=== PATIENT | female | born 1995 | race Caucasian/White ===

== ENCOUNTER 2016-06-18 18:26 | Outpatient (CLI) | payer OTHER ==
[~2016-06-18] VITALS: Ht 167.6 cm; Wt 112.2 kg
[2016-06-18] MEDS ORDERED: PREN1TAB17 PO (18:33)
[2016-06-18 18:34] VITALS: Ht 167.6 cm; Wt 112.2 kg
[2016-06-18 18:39] VITALS: BP 124/65
[2016-06-18] MEDS ORDERED: ACETAMINOPHEN 325 MG TAB PO STA (19:38)
--- NOTE | 2016-06-18 19:49 | PN ---
Date/Time of Note Date/Time of Note DATE: 06/18/16 TIME: 19:35 OB Subjective Subjective Subjective 21 yo P0 @ [id number], presents w abdominal itching, in an area where some new stretch welch are forming. She also complains of a headache in a band like distribution around her head. No visual changes, no abdominal pain OB Objective Objective Objective VS: 124/61, 109, 16, 97.9 Abdomen- gravid, n/t SVE-deferred FHT- Cat I [place]- no ctx Abdomen: WNL Accelerations: Accelerations Present Decelerations: No Decelerations Varibility: Moderate Contractions on Admission: None Intensity: Mild OB Assessment/Plan Other Assessment: Patient c/o abdominal itching, likely secondary to stretch welch headache, likely tension headache otherwise, reassuring status Other plan: will give tylenol for headache, nml BP, will send PIH labs advised to use moisturizers on abdomen and benadryl prn to sleep if feeling better after tylenol, d/c home MORGAN FUNES MD Jun 18, 2016 19:46
[2016-06-18 20:46] LABS: ADD UMIC NO; URINE BILIRUBIN (Dip) NEGATIVE (NEGATIVE); URINE BLOOD (Dip) NEGATIVE (NEGATIVE); URINE COLOR LT. YELLOW (YELLOW); URINE GLUCOSE (Dip) NEGATIVE (NEGATIVE); URINE KETONES (Dip) NEGATIVE (NEGATIVE); URINE LEUKOCYTE ESTERASE (Dip) NEGATIVE (NEGATIVE); URINE NITRITE (Dip) NEGATIVE (NEGATIVE); URINE TOTAL PROTEIN (Dip) NEGATIVE (NEGATIVE); URINE UROBILINOGEN (Dip) 0.2 E.U./dL (0.1-1.0)
--- NOTE | 2016-06-18 21:46 | TRIAGE ---
OB Triage Datetime Report Generated by CPN: 06/18/2016 21:46 Datetime: 06/18/2016 20:58 Stage of : OB Triage Headache: Denies Blurred Vision: No Labor Evaluation Frequency: 0 Monitor Mode: External Resting Tone [place]: Relaxed Heart Rate FHR Baseline Rate: 130 Monitor Mode: External US Variability: Moderate 6-25 bpm Accelerations: 15X15 Decelerations: None Category: Category I Pain Presence: None/Denies Pain Type: N/A Datetime: 06/18/2016 20:43 Stage of : OB Triage Datetime: 06/18/2016 19:30 Stage of : OB Triage Labor Evaluation Frequency: 0 Monitor Mode: External Resting Tone [place]: Relaxed Heart Rate FHR Baseline Rate: 140 Monitor Mode: External US Variability: Moderate 6-25 bpm Accelerations: 15X15 Decelerations: None Category: Category I Datetime: 06/18/2016 19:13 Stage of : OB Triage Datetime: 06/18/2016 19:05 EGA: 35.6 Datetime: 06/18/2016 18:42 Stage of : OB Triage Assessment Type: Triage Maternal Assessment Level of Consciousness: Fully Conscious DTR's/Clonus: DTRs 2+; No Clonus Headache: Denies; Frontal Blurred Vision: No Respiratory Effort: Unlabored; Regular Rhythm; Equal Expansion Breath Sounds, Left: Clear and Equal Breath Sounds, Right: Clear and Equal Nausea/Vomiting: Denies RUQ Epigastric Pain: Denies Lower Extremities Edema: Bilateral Lower Extremities Degree: Pitting Upper Extremities Edema: None Degree: None Facial Edema: None Temperature Route: Oral Fall Risk Assessment History of Falling: (0) No Secondary Diagnosis: (0) No Ambulatory Aid: (0) Bedrest/Nurse Assist IV Therapy: (0) No Gait: (0) Normal/Bedrest/Immobile Mental Status: (0) Oriented to Own Ability Fall Score: 0 Fall Risk Score Definition: No Risk: No action required Labor Evaluation Frequency: 0 Monitor Mode: External Resting Tone [place]: Relaxed Heart Rate FHR Baseline Rate: 155 Monitor Mode: External US Variability: Moderate 6-25 bpm Accelerations: 15X15 Decelerations: None Pain Assessment Pain Scale: 0 Pain Presence: None/Denies Pain Type: N/A Datetime: 06/18/2016 18:40 Time of Arrival: 06/18/2016 18:20 Arrived By: Ambulatory Arrived From: Home Chief Complaint: HEADACHE, ITCHING STOMACHE HANDS Movement: Present Contractions: Denies/Absent Rupture of Membranes: Denies Vaginal Bleeding: None Vaginal Discharge: Present Recent Sexual Intercouse: Denies Abdominal Trauma: Not Applicable Patient Complaints: Headache; Other Initial Plan: EFM X2 , CALL OB, tylenol. po hydration, crackers, UA
== END 2016-06-18 21:14 | disposition home or self-care (01) ==
LOC: OBT 18:26 → L-D 18:28 → OBT 21:14
PROVIDERS: ATTEND Obstetrics & Gynecology
DX: O60.03 Preterm labor without delivery, third trimester (principal); Z3A.35 35 weeks gestation of pregnancy
CPT/HCPCS: 81003; Z7610; G0463

== ENCOUNTER 2016-07-01 18:09 | Inpatient (IN) | payer OTHER ==
[~2016-07-01] VITALS: Ht 167.6 cm; Wt 113.4 kg
[~2016-07-01 18:09] MED LIST: PREN1TAB17 PO
[2016-07-01 18:28] VITALS: BP 132/76; PULSE 114; RESP 20
[2016-07-01 18:33] VITALS: Ht 167.6 cm; Wt 113.4 kg
[2016-07-01] MEDS ORDERED: MISOPROSTOL 200 MCG TAB PR PRN (19:00)
[2016-07-01] MEDS ORDERED: LIDOCAINE 1% (MPF) 30 ML INJ INJ PRN (19:00)
[2016-07-01] MEDS ORDERED: METHYLERGONOVINE 0.2 MG INJ IM PRN (19:00)
[2016-07-01] MEDS ORDERED: BUTORPHANOL 2 MG INJ IV PRN (19:00)
[2016-07-01] MEDS ORDERED: CARBOPROST 250 MCG INJ IM PRN (19:00)
[2016-07-01] MEDS ORDERED: OXYTOCIN 30 UNITS/LR 500 ML IV SCH ×2 (19:00)
[2016-07-01] MEDS ORDERED: LACTATED RINGER'S 1,000 ML IV PRN (19:00)
[2016-07-01] MEDS ORDERED: OXYTOCIN 30 UNITS/LR 500 ML IV PRN (19:00)
[2016-07-01 19:08] LABS: ADD SCAN DIFF NO
[2016-07-01 19:11] LABS: BASOPHILS % 0.2 % (0.0-2.0); EOSINOPHILS % 0.3 % (0.0-7.0); HEMATOCRIT 34.2 % (37.0-47.0); HEMOGLOBIN 10.9 g/dl (12.0-16.0); LYMPHOCYTES # 2.1 10^3/ul (0.8-2.9); LYMPHOCYTES % 17.9 % (18.0-55.0); MEAN CORPUSCULAR HEMOGLOBIN 24.3 pg (29.0-33.0); MEAN CORPUSCULAR HGB CONC 31.9 g/dl (32.0-37.0); MEAN CORPUSCULAR VOLUME 76.3 fl (72.0-104.0); MEAN PLATELET VOLUME 9.9 fl (7.4-10.4); MONOCYTE # 0.6 10^3/ul (0.3-0.9); NEUTROPHIL # 8.9 10^3/ul (1.6-7.5); NEUTROPHILS % 75.5 % (30.0-74.0); NUCLEATED RED BLOOD CELLS% 0.2 /100WBC (0.0-0.0); PLATELET COUNT 318 10^3/UL (140-415); RED BLOOD COUNT 4.48 10^6/ul (4.20-5.40); RED CELL DISTRIBUTION WIDTH 15.9 % (11.5-14.5); WHITE BLOOD COUNT 11.8 10^3/ul (4.8-10.8)
[2016-07-01] MEDS: LACTATED RINGER'S 1,000 ML IV SCH ×2 (19:18→20:36)
[2016-07-01 19:25] LABS: ALBUMIN 3.5 g/dl (3.3-4.9); CHLORIDE 104 mmol/L (97-110); POTASSIUM 4.3 mmol/L (3.5-5.1); SODIUM 134 mmol/L (135-144)
[2016-07-01 19:27] LABS: CREATININE 0.98 mg/dl (0.44-1.00)
[2016-07-01 19:28] LABS: ALANINE AMINOTRANSFERASE 29 IU/L (13-69); ALKALINE PHOSPHATASE 206 IU/L (42-121); ASPARTATE AMINO TRANSFERASE 28 IU/L (15-46); BILIRUBIN,INDIRECT 0.5 mg/dl (0-1.1); BILIRUBIN,TOTAL 0.5 mg/dl (0.2-1.3); BLOOD UREA NITROGEN 15 mg/dl (7-20); CALCIUM 9.1 mg/dl (8.4-10.2); CARBON DIOXIDE 21 mmol/L (21-31); GLUCOSE 77 mg/dl (70-220)
[2016-07-01 19:30] LABS: ANION GAP 13 (8-16)
[2016-07-01 19:37] LABS: INR 0.98
[2016-07-01 19:38] LABS: PARTIAL THROMBOPLASTIN TIME 28.5 Sec (25.0-35.0)
--- NOTE | 2016-07-01 19:42 | RADRPT ---
PROCEDURE: US OB CLINICAL INDICATION: INDUCTION OF LABOR TECHNIQUE: Multiple sonographic images of the pelvis were obtained. The images were reviewed on a PACS workstation. COMPARISON: None FINDINGS: The cervix is not well visualized. There is a single viable intrauterine gestation. Cardiac activity is present with 146 beats per minute. There is a vertex presentation. The placenta is posterior and fundal. There is no evidence for an abruption or placenta previa. There is a subjectively normal amount of amniotic fluid. Measurements were made in order to determine age. The results are as follows (cm): BPD =9.21 HC =33.02 AC =37.28 FL =7.46 Estimated gestational age by ultrasound of approximately 38 weeks, 4 days. The estimated date of delivery by ultrasound is 07/11/2016. Reported gestational age by LMP of approximately 37 weeks, 5 days. The reported date of delivery by LMP is 07/17/2016. EFW = 3852 grams (95th percentile) IMPRESSION: Single viable intrauterine gestation of approximately 38 weeks, 4 days . The estimated date of delivery is 07/11/2016 . Dating by ultrasound is within 6 days of dating by LMP. Estimated weight is in the 95th percentile. Cephalic presentation. RPTAT: EE Physician Austyn Date Time Electronically viewed and signed by Physician Austyn on 07/01/2016 19:41 RAMON
[2016-07-01] MEDS ORDERED: DINOPROSTONE 10 MG VAG SUPP VAG ONE (21:00)
[2016-07-02] MEDS: LACTATED RINGER'S 1,000 ML IV SCH ×3 (07:59→20:17)
[2016-07-02] MEDS ORDERED: OXYTOCIN 30 UNITS/LR 500 ML IV SCH (13:00)
[2016-07-02] MEDS ORDERED: CEFAZOLIN 2 GM/50 ML (PMX) 50 ML IV SCH (13:00)
[2016-07-02] MEDS ORDERED: ONDANSETRON 4 MG INJ ONE (14:07)
[2016-07-02] MEDS ORDERED: PHENYLephrine (100 MCG/ML) 5ML SYG ONE ×4 (14:07→14:51)
[2016-07-02] MEDS ORDERED: EPHEDrine SULFATE 50 MG/5 ML SYG ONE (14:07)
--- NOTE | 2016-07-02 14:09 | PREOPHP ---
DATE OF ADMISSION: 07/01/2016 HISTORY OF PRESENT ILLNESS: Ms. Grealdine Tucker is a 21-year-old 1, para 0, EDC 07/17/2016 intr auterine at 38 weeks gestational age, who was admitted last night for induction secondary to cholestasis of . She received 1 Cervidil and was reevaluated this morning to have no si gnificant cervical change. A second Cervidil was offered to the patient; however, patient currently declines to continue induction, desires an elective delivery. Her care initially took place at [facility] and she transferred care to ____ Clinic at [facility] 27 weeks gestational age. PAST MEDICAL HISTORY: Cholestasis of . MEDICATIONS: vitamins. PAST SURGICAL HISTORY: None. OBSTETRIC HISTORY: Primigravid. GYNECOLOGIC HISTORY: 12, regular 3 to 4 days. Denies any sexually transmitted diseases. Sexually active with 1 partner. SOCIAL HISTORY: Denies any smoking, drugs or alcohol. FAMILY HISTORY: None. REVIEW OF SYSTEMS: All within normal except history of present illness. PHYSICAL EXAMINATION: HEENT: Within normal. LUNGS: CTA bilateral. CARDIOVASCULAR: S1, S2, regular rhythm. ABDOMEN: Gravid, nontender. EXTREMITIES: Negative edema. No calf tenderness. PELVIC: Long and closed. Bile acids approximately 13. heart tracing category 1, TOCO occasi onal contractions. ASSESSMENT: A 21-year-old 1, para 0, intrauterine at 38 weeks gestational age wi th cholestasis of , declines to continue induction, desires elective primary secti on. PLAN: Consent for a primary . Risks, benefits and alternatives explained. All questions were answered. Dictated By: EDUAR MODI/DEN Conf#: [id number] DID#: [id number]
[2016-07-02] MEDS ORDERED: FENTAnyl 50 MCG/ML VIAL ONE (14:44)
[2016-07-02] MEDS ORDERED: morphine SULFATE/PF (10 MG/10 ML) INJ ONE (14:50)
[2016-07-02] MEDS ORDERED: HYDROmorphONE (0.2 MG/ML) 10ML SYG IV PRN ×5 (15:00→17:30)
[2016-07-02] MEDS ORDERED: ONDANSETRON 4 MG INJ IV PRN ×4 (15:00→17:30)
[2016-07-02] MEDS ORDERED: KETOROLAC 30 MG INJ IV PRN ×2 (15:00→17:30)
[2016-07-02] MEDS ORDERED: METOCLOPRAMIDE 10 MG INJ IV PRN ×2 (15:00→17:30)
[2016-07-02] MEDS ORDERED: MEPERIDINE 25 MG INJ IV PRN ×2 (15:00→17:30)
[2016-07-02] MEDS ORDERED: DIPHENHYDRAMINE 50 MG INJ IV PRN ×4 (15:00→17:30)
[2016-07-02] MEDS ORDERED: HYDROmorphONE 1 MG/ML SYG IV PRN ×4 (15:00→17:30)
[2016-07-02] MEDS ORDERED: NALOXONE (0.4 MG/ML) INJ IV PRN ×2 (15:00→17:30)
[2016-07-02] MEDS ORDERED: PROCHLORPERAZINE 10 MG INJ IV PRN (15:00)
[2016-07-02] MEDS ORDERED: FENTAnyl 50 MCG/ML VIAL IV PRN ×2 (15:00→17:30)
[2016-07-02] MEDS ORDERED: LANOLIN 7 GM TUBE TOP PRN (15:30)
[2016-07-02] MEDS ORDERED: OXYCODONE/ACETAMINOPHEN (5/325) TAB PO PRN (15:30)
[2016-07-02] MEDS ORDERED: MISOPROSTOL 200 MCG TAB PR PRN (15:30)
[2016-07-02] MEDS ORDERED: METHYLERGONOVINE 0.2 MG INJ IM PRN (15:30)
[2016-07-02] MEDS ORDERED: CARBOPROST 250 MCG INJ IM PRN (15:30)
[2016-07-02] MEDS: OXYTOCIN 30 UNITS/LR 500 ML IV PRN ×2 (15:35→16:30)
--- NOTE | 2016-07-02 16:51 | OPR ---
DATE OF OPERATION: 07/02/2016 PREOPERATIVE DIAGNOSIS: A 21-year-old 1, para 0, intrauterine at 38 weeks' gestat ional age, with cholestasis of . Declined to continue induction and desires elective valerie sybil delivery, maternal request. POSTOPERATIVE DIAGNOSIS: A 21-year-old 1, para 0, intrauterine at 38 weeks' gesta tional age, with cholestasis of . Declined to continue induction and desires elective cesa rean delivery, maternal request. PROCEDURE: Primary low transverse delivery via Pfannenstiel incision. SURGEON: Cuco Breen MD CASING SPLITTER: FINDINGS: A viable female, 's of 9 and 9 respectively at 1 and 5 minutes, weight 8 pounds 14 o unces; x2 cord around the neck was noted. ESTIMATED BLOOD LOSS: 500 mL. SPECIMEN: None. COMPLICATIONS OF PROCEDURE: None. TYPE OF ANESTHESIA: Spinal. DESCRIPTION OF PROCEDURE: After explaining the risks, benefits and alternatives to the patient and consent signed in the chart, the patient was taken to the operating room where spinal anesthesia was found to be adequate. She was then prepared and draped in a normal sterile fashion in the dorsal s upine position with a leftward tilt. A Pfannenstiel skin incision was then made with a scalpel and carried to the underlying fascia. The fascia was incised in the midline and the incision was extend ed laterally with Bennett scissors. The superior aspect of the fascial incision was then grasped with curved clamps, elevated and the underlying rectus muscle was dissected off bluntly. Attention was then turned to the inferior aspect of the incision, which in similar fashion was grasp ed, tented up with curved clamps, and the rectus muscles dissected off bluntly. The rectus muscles were in the midline, peritoneum identified, tented up and entered sharply with Metzenbaum scissors. The peritoneal incision was extended superiorly and inferiorly, obtaining good visualizat ion of the bladder. The bladder blade was then inserted and the vesicouterine peritoneum was identi fied, grasped with pickups and entered sharply with Metzenbaum scissors. This incision was extended laterally and a bladder flap created digitally. The bladder blade was then reinserted and the lowe r segment incised in transverse fashion with a scalpel. The uterine incision was extended laterally . The bladder blade was removed and the infant's head delivered atraumatically. The nose and mouth were suctioned and the cord was clamped and cut/delayed. The was handed off to the waiting yarn sorter. The placenta was then removed. The uterus was exteriorized, cleared of all clots and debris. The uterine incision was repaired with 1-0 chromic in a running locked fashion. A second layer of the same suture was used for imbrication, obtaining excellent hemostasis. The uterus was r eturned to the abdomen. The gutters were cleared of all clots. The peritoneum and rectus abdominis muscles were reapproximated with 3-0 Vicryl in interrupted fashion. The fascia was reapproximated w ith 0 Vicryl in running fashion. The subcutaneous tissue was reapproximated with 2-0 plain gut in a running fashion. The skin was closed with absorbable shonda. The patient tolerated the procedure well. Sponge, lap and needle counts were correct x2. The patient was taken to the recovery room i n stable condition. Dictated By: CUCO MODI/DEN Conf#: [id number] DID#: [id number]
[2016-07-02] MEDS ORDERED: KETOROLAC 30 MG INJ IV ONE (17:30)
[2016-07-02 18:00] VITALS: BP 117/72; PULSE 82; RESP 18
[2016-07-02] MEDS ORDERED: IBUPROFEN 600 MG TAB PO SCH (18:00)
[2016-07-02 18:30] VITALS: BP 108/57; PULSE 94; RESP 18
[2016-07-02 18:50] VITALS: BP 112/55; PULSE 96
[2016-07-02 19:45] VITALS: BP 102/58; RESP 18
[2016-07-02] MEDS: SENNA/DOCUSATE NA (8.6MG/50MG) TAB PO SCH (21:00)
[2016-07-03] VITALS: BP 105/56; PULSE 80; RESP 18
[2016-07-03 04:00] VITALS: BP 120/62; RESP 18
[2016-07-03] MEDS: LACTATED RINGER'S 1,000 ML IV SCH ×2 (06:00→07:07)
[2016-07-03 06:40] LABS: ADD SCAN DIFF NO
[2016-07-03 06:46] LABS: BASOPHILS % 0.1 % (0.0-2.0); EOSINOPHILS % 0.1 % (0.0-7.0); HEMATOCRIT 30.1 % (37.0-47.0); HEMOGLOBIN 9.1 g/dl (12.0-16.0); LYMPHOCYTES # 1.8 10^3/ul (0.8-2.9); MEAN CORPUSCULAR HEMOGLOBIN 23.6 pg (29.0-33.0); MEAN CORPUSCULAR HGB CONC 30.2 g/dl (32.0-37.0); MEAN CORPUSCULAR VOLUME 78.2 fl (72.0-104.0); MEAN PLATELET VOLUME 9.7 fl (7.4-10.4); MONOCYTE # 0.5 10^3/ul (0.3-0.9); MONOCYTES % 5.9 % (0.0-13.0); NEUTROPHIL # 6.7 10^3/ul (1.6-7.5); NEUTROPHILS % 73.2 % (30.0-74.0); PLATELET COUNT 220 10^3/UL (140-415); RED BLOOD COUNT 3.85 10^6/ul (4.20-5.40); RED CELL DISTRIBUTION WIDTH 16.3 % (11.5-14.5); WHITE BLOOD COUNT 9.1 10^3/ul (4.8-10.8)
--- NOTE | 2016-07-03 07:18 | CONS ---
Date/Time of Note Date/Time of Note DATE: 07/03/16 TIME: 07:16 Consultation Date/Type/Reason Admit Date/Time Jul 01, 2016 at 18:09 Initial Consult Date 07/03/16 Type of Consultation: Anesthesiology Reason for Consultation Follow up visit 24 HR Interval Summary Free Text/Dictation Pt seen at bedside is s/p c/s POD#1. Pt received Duramorph spinal for post op pain control. She states she has minimal pain and minimal nausea but otherwise doing well. No V/D/VALERIO. Will follow up PRN. Exam/Review of Systems Vital Signs Vitals Vital Signs Date Time Temp Pulse Resp B/P Pulse Ox O2 Delivery O2 Flow Rate FiO2 07/03/16 04:00 98.2 18 120/62 Room Air 07/03/16 00:00 80 Intake and Output 07/02/16 07/02/16 07/03/16 14:59 22:59 06:59 Intake Total 3250 ml 1075 ml 1000 ml Output Total 1250 ml 700 ml 1400 ml Balance 2000 ml 375 ml -400 ml Results Result Diagram: 07/03/16 0628 07/01/16 1844 Results 24 hrs Laboratory Tests Test 07/03/16 06:28 White Blood Count 9.1 # Red Blood Count 3.85 L Hemoglobin 9.1 L Hematocrit 30.1 L Mean Corpuscular Volume 78.2 Mean Corpuscular Hemoglobin 23.6 L Mean Corpuscular Hemoglobin Concent 30.2 L Red Cell Distribution Width 16.3 H Platelet Count 220 # Mean Platelet Volume 9.7 Neutrophils % 73.2 Lymphocytes % 20.0 Monocytes % 5.9 Eosinophils % 0.1 Basophils % 0.1 Nucleated Red Blood Cells % 0.0 Neutrophils # 6.7 Lymphocytes # 1.8 Monocytes # 0.5 Eosinophils # 0.0 Basophils # 0.0 Nucleated Red Blood Cells # 0.0 Medications Medications Current Medications Lactated Ringer's (Lr) 1,000 ml @ 125 mls/hr Q8H IV Last administered on t 06:00; Admin Dose 125 MLS/HR; Start 07/02/16 at 15:07 Oxycodone/ Acetaminophen (Percocet (5/ 325)) 1 tab Q4H PRN PO PAIN LEVEL 4-6; Start 07/02/16 at 15:30 Oxycodone/ Acetaminophen (Percocet (5/ 325)) 2 tab Q4H PRN PO PAIN LEVEL 7-10; Start 07/02/16 at 15:30 Simethicone (Mylicon) 160 mg Q8H PRN PO DISTENSION/GAS/BLOATING; Start 07/02/16 at 15:30 Senna/Docusate Sodium 1 tab 1 tab BID PO ; Start 07/02/16 at 21:00 Oxytocin/Lactated Ringer's 500 ml @ 0 mls/hr ONCE PRN IV For Hemorrhage Management Last administered on 07/02/16 16:30; Admin Dose 0 MLS/HR; Start at 15:30 Methylergonovine Maleate (Methergine) 0.2 mg ONCE PRN IM VAGINAL BLEEDING; Start 07/02/16 at 15:30 Carboprost Tromethamine (Hemabate) 250 mcg ONCE PRN IM VAGINAL BLEEDING; Start 07/02/16 at 15:30 Misoprostol (Cytotec) 1,000 mcg ONCE PRN [place] VAGINAL BLEEDING; Start 07/02/16 at 15:30 Naloxone HCl (Narcan) 0.1 mg Q2M PRN IV FOR RESP RATE 8 OR LESS; Start 07/02/16 at 17:30; Stop 07/03/16 at 17:29 Ketorolac Tromethamine (Toradol) 30 mg Q6H PRN IV PAIN; Start 07/02/16 at 17:30 ; Stop 07/03/16 at 17:29 Hydromorphone HCl (Dilaudid) 0.2 mg Q3H PRN IV PAIN LEVEL 1-5; Start 07/02/16 at 17:30; Stop 07/03/16 at 17:29 Hydromorphone HCl (Dilaudid) 0.4 mg Q3H PRN IV PAIN LEVEL 6-10 Last administered on 07/02/16 20:55; Admin Dose 0.4 MG; Start 07/02/16 at 17:30; Stop 07/03/16 at 17:29 Ondansetron HCl (Zofran Inj) 4 mg Q6H PRN IV NAUSEA AND/OR VOMITING; Start 07/02 at 17:30; Stop 07/03/16 at 17:29 Ibuprofen (Motrin) 600 mg Q6 PO ; Start 07/03/16 at 18:00 FESTUS REYES Jul 03, 2016 07:18
[2016-07-03 08:15] VITALS: BP 98/57; PULSE 92; RESP 16
--- NOTE | 2016-07-03 08:34 | QN ---
Documentation Comment POD#1 Pt w/o c/o this AM. Has not yet ambulated or voided. No flatus. Mikey clears w/o N /V. Hungry. Pain 04/12, c/w PO meds. O VS 98.2 120/62 18 Gen: well appearing, NAD CV: RRR, nl s1s2 Resp: CTAB Abd: soft, appropriately TTP, ND, NABS, FF at umbilicus Inc: dressing in place, c/d/i Ext: symmetric BLE, nontender, no edema. SCDs in place Labs: Pre-op Hgb 10.9 -> EBL 500ml -> Post-op Hgb 9.1 A/P: S/p elective 1LTCS in the setting of cholestasis ->Continue routine postop care ->D/c cadet catheter today and await spont void ->Encourage ambulation ->Advance diet to regular -> support PIPPA PRIEST MD Jul 03, 2016 08:33
[2016-07-03] MEDS: SENNA/DOCUSATE NA (8.6MG/50MG) TAB PO SCH ×2 (09:29→20:34)
[2016-07-03 12:15] VITALS: BP 98/54; PULSE 101; RESP 16
[2016-07-03 16:05] VITALS: BP 101/68; PULSE 91; RESP 16
[2016-07-03] MEDS: IBUPROFEN 600 MG TAB PO SCH ×2 (18:16→23:43)
[2016-07-03] MEDS: OXYCODONE/ACETAMINOPHEN (5/325) TAB PO PRN (18:17)
[2016-07-03 19:30] VITALS: BP 105/55; PULSE 92; RESP 18
[2016-07-04 03:55] VITALS: BP 98/64; PULSE 83; RESP 18
[2016-07-04] MEDS: IBUPROFEN 600 MG TAB PO SCH ×4 (06:00→23:37)
[2016-07-04] MEDS: SENNA/DOCUSATE NA (8.6MG/50MG) TAB PO SCH ×2 (08:38→21:32)
--- NOTE | 2016-07-04 13:23 | QN ---
Documentation Comment attending note POD #2 patient seen and evaluated no complaint vs stable, afebrile abd c/d/i no distention extremity no edema no calf tenderness a/ s/p cd pod 2 stable afebrile p/ continue present management EDUAR MOTT MD Jul 04, 2016 13:23
[2016-07-04] MEDS: OXYCODONE/ACETAMINOPHEN (5/325) TAB PO PRN (15:02)
[2016-07-04 15:50] VITALS: BP 114/68; PULSE 97; RESP 18
[2016-07-04 20:15] VITALS: BP 117/55; PULSE 89; RESP 19
[2016-07-04] MEDS: FERROUS SULFATE (EC) 325 MG TAB PO SCH (21:32)
[2016-07-05 04:01] VITALS: BP 115/71; PULSE 86; RESP 18
[2016-07-05] MEDS: IBUPROFEN 600 MG TAB PO SCH ×3 (05:32→18:00)
[2016-07-05 08:00] VITALS: BP 110/76; PULSE 87; RESP 18
[2016-07-05] MEDS: FERROUS SULFATE (EC) 325 MG TAB PO SCH (09:18)
[2016-07-05] MEDS: SENNA/DOCUSATE NA (8.6MG/50MG) TAB PO SCH (09:19)
[2016-07-05 16:00] VITALS: BP 125/74; PULSE 102; RESP 18
--- NOTE | 2016-07-05 19:59 | PD.PPDC ---
WINTER INTERN Discharge Instruction Condition Patient Condition: Fair Diet Diet: Resume Regular Diet Activity/Restrictions Restrictions: No Sexual Activity Nothing in the Vagina No [place] No Tampons, douche Follow-up Follow-up with Physician: 2, Week/Weeks Return to clinic for HEAD ESTHETICIAN Instructions: Fever greater than 101 Chills Worsening abdominal pain Excessive Vaginal Bleeding More than 2 pads per hour Unable to tolerate diet OB Instructions: Breast Tenderness Depression Blurried Vision Headache Surgical Instructions: Incisional Drainage Incisional Redness EDUAR MOTT MD Jul 05, 2016 19:59
[2016-07-05] MEDS ORDERED: Oxycodone/Acetamin (5/325) PO (20:11)
[2016-07-05] MEDS ORDERED: IBUP-1542 PO (20:11)
[2016-07-05 21:00] VITALS: BP 126/56; PULSE 86
--- NOTE | 2016-07-05 22:02 | DS ---
DATE OF ADMISSION: 07/01/2016 DATE OF DISCHARGE: 07/05/2016 PRIMARY DIAGNOSIS: A 21-year-old 1, para 0, intrauterine at 38 weeks gestational age with cholestasis of . Desires elective primary . CONDITION ON DISCHARGE: Stable. ACTIVITY: None per vagina, no lifting for 6 weeks. DIET: Regular. MEDICATIONS ON DISCHARGE: 1. Motrin. 2. Percocet. 3. Iron. 4. Colace. DISCHARGE SUMMARY: A 21-year-old 1, para 1 status post primary delivery on 017. She had a viable female, 9 and 9 respectively at 1 and 5 minutes, weight 8 pounds 14 oun carrie. Uneventful postop day 1, 2, and 3. Her incision is clean, dry, and intact. She is ambulating , tolerating diet, positive flatulence, positive bowel movement. She will follow up in the office i n 2 weeks for /postop care. Dictated By: EDUAR MODI/DEN Conf#: [id number] DID#: [id number]
== END 2016-07-05 21:00 | disposition home or self-care (01) | DRG 765 ==
LOC: L-D 18:09 → PP1 07-02 17:54 → EDSTATUS 07-17 18:08
PROVIDERS: ADMIT Obstetrics & Gynecology; ATTEND Obstetrics & Gynecology
PROC: 3E0P7GC Introduction of Other Therapeutic Substance into Female Reproductive, Via Natural or Artificial Opening (ICD-10-PCS; 2016-07-01)
PROC: 10D00Z1 Extraction of Products of Conception, Low, Open Approach (ICD-10-PCS; principal; 2016-07-02 14:30)
DX: O26.62 Liver and biliary tract disorders in childbirth (principal); K83.1 Obstruction of bile duct; O99.214 Obesity complicating childbirth; Z68.41 Body mass index [BMI] 40.0-44.9, adult; O69.1XX0 Labor and delivery complicated by cord around neck, with compression, not applicable or unspecified; E66.9 Obesity, unspecified; Z3A.38 38 weeks gestation of pregnancy; Z37.0 Single live birth
CPT/HCPCS: 76815; 80053; 85025; 85610; 85730; 86592; 86900; 86901; 87340; 99464; J0690; J1170; J1885; J2274; J2370; J2405; J2590; J3010; J7120